=== PATIENT | male | born 2005 | race Two or more races ===

== ENCOUNTER 2025-04-06 07:25 | Emergency (ER) | payer MEDICAID, SELFPAY ==
[2025-04-06 07:40] VITALS: BP 115/79; PULSE 72; RESP 16; TEMP 36.9; O2SAT 94; BMI 22.3
--- NOTE | 2025-04-06 07:50 | XR_ITS ---
EXAMINATION: AP chest single view TECHNIQUE: AP portable upright chest single view Date and time: April 06, 2025, 0759 hours INDICATIONS: Coughing shortness of breath 2 days. FINDINGS: Moderate hyperexpansion Normal heart size Lungs are clear IMPRESSION: Moderate hyperexpansion
[2025-04-06 08:03] VITALS: PULSE 70; PULSE 78; RESP 18; O2SAT 100
[2025-04-06] MEDS: ALBUTEROL RT 2.5 MG/0.5 ML NEBU 5 MG INH (08:03)
[2025-04-06] MEDS: IPRATROPIUM RT 0.5 MG/ 2.5 ML NEBU 1 MG INH (08:03)
[2025-04-06] MEDS: DEXAMETHASONE SOD PHOS INJ 10 MG/ML VIAL PO (08:17)
--- NOTE | 2025-04-06 08:48 | EDNOTE_ITS ---
<Statement entered by Tiff Hua MD - 04/16/25 06:39> As co-signing physician, I was present and available for consult prn. I concur with the plan and care as documented by the midlevel provider. ED Asthma RME/HPI General Chief Complaint: Asthma Stated Complaint: ASTHMA FLAIR-UP Time Seen by Provider: 04/06/25 07:34 Arrival date/time: 04/06/25 07:25 20-year-old male presents to the emergency dept today for complaint of asthma flareup patient reports wheezing ongoing for last 2 days as well as cough and congestion Limitations: no limitations Related Data Previous Rx's ?Medication ?Instructions ?Recorded Ventolin HFA 90 mcg/actuation 2 puff inhalation Q6H PA N 04/06/25 aerosol inhaler (albuterol sulfate) shortness of breat h or wheezing #18 grams prednisone 20 mg tablet 20 mg PO BID 3 days #6 tabs 04/06/25 Allergies Allergy/AdvReac Type Severity Reaction Status Date / Time No Known Allergies Allergy Verified 04/06/25 07:28 Review of Systems Review of Systems Systems Reviewed: All systems reviewed, normal except as documented Constitutional Constitutional: Reports system reviewed and no additional complaints, except as documented, Denies fever(s) and Denies headache(s) Eyes Eyes: Reports system reviewed and no additional complaints, except as documented and Denies blurry vision ENT Ears, Nose, Mouth, and Throat: Reports system reviewed and no additional complaints, except as documented, Denies headache(s), Denies nasal congestion and Denies nasal discharge Cardiovascular Cardiovascular: Reports system reviewed and no additional complaints, except as documented, Denies chest pain and Denies dyspnea Respiratory Respiratory: Reports system reviewed and no additional complaints, except as documented, Reports chest congestion, Reports cough, Denies dyspnea and Reports wheezing Gastrointestinal Gastrointestinal: Reports system reviewed and no additional complaints, except as documented and Denies abdominal pain Integumentary/Breasts Skin/Breast: Reports system reviewed and no additional complaints, except as documented and Denies rash Neurologic Neurologic: Reports system reviewed and no additional complaints, except as documented, Reports as per HPI and Denies headache(s) Allergic/Immunologic Allergic/Immunologic: Reports wheezing Past Medical History Past Medical History CARDIAC: Positive Cardiac Disorders; Negative Congestive Heart Failure RESPIRATORY: Positive Asthma; Negative Chronic Obstructive Pulmonary Disease (COPD) GENITOURINARY: Negative Renal Disease ENDOCRINE: Negative Diabetes Mellitus Type 1 or Diabetes Mellitus Type 2 Social History SMOKING STATUS: Current some day smoker ED Exam General Limitations: Present no limitations General appearance: Present alert and in no apparent distress Head Head exam: Present atraumatic Eye Eye exam: Present normal appearance, PERRL and EOMI ENT ENT exam: Present normal exam, normal oropharynx and mucous membranes moist Neck Neck exam: Present normal inspection, full ROM and trachea midline Chest Chest inspection: Present normal inspection and symmetric chest wall rise Respiratory Respiratory exam: Present wheezes; Absent respiratory distress, stridor, ac cessory muscle use or prolonged expiratory phase Cardiovascular Cardiovascular exam: Present regular rate, normal rhythm and normal heart sounds Abdominal Exam Abdominal exam: Present soft and normal bowel sounds Extremities Exam Extremities exam: Present normal inspection and full ROM Back Exam Back exam: Present normal inspection and full ROM Neurological Exam Neurological exam: Present alert, oriented X3 and CN II-XII intact Psychiatric Psychiatric exam: Present normal affect and normal mood Skin Skin exam: Present warm, dry, intact and normal color Course Quality Measures none Orders Category Date Time Status XR chest 1V portable Stat Exams 04/06/25 07:50 Taken ALBUTEROL RT 0.5ml [Proventil Rt 0.5ml] Med 04/06/25 07:49 Discontinued 5 mg INH X1 ONE Dexamethasone Inj [Decadron Inj] Med 04/06/25 07:49 Discontinued 10 mg PO X1 ONE Ipratropium [place] Rt Veronica [Atrovent Rt Veronica] Med 04/06/25 07:49 Discontinued 1 mg INH X1 ONE Sodium Chloride Rt Veronica 0.9% [NS Rt Veronica 0.9%] Med 04/06/25 07:49 Active 3 ml INH PRN PRN Vital Signs Vital signs: Vital Signs Temperature 98.4 F 04/06/25 07:40 Pulse Rate 72 04/06/25 07:40 Respiratory Rate 16 04/06/25 07:40 Blood Pressure 115/79 04/06/25 07:40 Pulse Oximetry (%) 94 L 04/06/25 07:40 Oxygen Delivery Method Room Air 04/06/25 07:40 O2 saturation 94% room air Asthma MDM Narrative MDM Narrative:: 20-year-old male presents to the emergency dept today for complaint of asthma flareup patient reports wheezing ongoing for last 2 days as well as cough and congestion On exam patient well-appearing does not appear look toxic no acute stress Patient does have bilateral wheezing Patient given breathing treatment steroids Chest x-ray obtained no acute pneumonic infiltrates noted Time reevaluation patient is no wheezing feels better Patient discharged home in no distress to follow-up with primary care doctor in the next 24 to 48 hours and for any worsening symptoms to return to the ER immediately Patient data External records reviewed:: [facility] previous records Clinical information provided by:: patient Social determinants that could affect healthcare access:: none Patient has the following chronic illnesses:: Asthma How is presenting disease/condition affected by chronic disease/condition?: caused by Evaluation data The following diagnostics were reviewed and interpreted by me:: radiology exam(s) Lab and/or radiology exams considered but not ordered:: Radiology obtain Interpretation Summary: Reviewed by me Medications / Prescriptions Medications or Prescriptions considered but not ordered:: Given Medication administrations:: Medication Administration History Sodium Chloride (Sodium Chloride Rt Veronica 0.9% 3 Ml Nebu) 3 ml INH PRN PRN PRN Reason: SOLN Stop: 05/06/25 07:48 Discontinued Medications Albuterol (Albuterol Rt 2.5 Mg/0.5 Ml Nebu) 5 mg INH X1 ONE Stop: 04/06/25 07:50 Last Admin: 04/06/25 08:03 Dose: 5 mg Documented By: KRISTEN Dexamethasone Sodium Phosphate (Dexamethasone Sod Phos Inj 10 Mg/Ml Vial) 10 mg PO X1 ONE Stop: 04/06/25 07:50 Last Admin: 04/06/25 08:17 Dose: 10 mg Documented By: DO Comments: GIVEN PO Ipratropium [place] (Ipratropium Rt 0.5 Mg/ 2.5 Ml Nebu) 1 mg INH X1 ONE Stop: 04/06/25 07:50 Last Admin: 04/06/25 08:03 Dose: 1 mg Documented By: KRISTEN Consultations Consultation(s) initiated? (list below): No Diagnosis Differential diagnosis asthma: Acute exacerbation, Status asthmaticus and Acute asthmatic bronchitis Most likely diagnosis given after review of the tests above:: Asthma exacerbation Admission Indicated Admission indicated?: not indicated Admission Request Was there a request for admission?: No Disposition Plan Disposition Plan: Discharge Discharge Attestation Discharge Attestation: The patient and all family members were given an opportunity to ask questions and understood the discharge instructions. Discharge instructions specifically effects, indications for sooner follow up or return to the emergency department, and the expected course of current diagnosis. Patient condition: Stable Discharge Plan Plan Patient Disposition: HOME (Self Care) Discharge Disposition comment: Stable Prescriptions/Referrals Prescriptions/Med Rec: New albuterol sulfate [Ventolin HFA] 90 mcg/actuation HFA aerosol inhaler 2 puff inhalation Q6H PRN (Reason: shortness of breath or wheezing) Qty: 18 0RF prednisone 20 mg tablet 20 mg PO BID 3 Days Qty: 6 0RF Referrals: No Primary/Family,Physician [Primary Care Provider] - In 1 week Problem List Clinical Impression: Asthma with acute exacerbation Patient/Caregiver Discharge Instructions Education Materials: Asthma Additional Instructions: Please follow up with your primary care doctor in the next 24-48hrs for any worsening symptoms return here immediately Print Language: Yi Stand Alone Forms: Ethel Award Info., Work/School Release, Patient Portal Info Letter PA/PATIENT APPOINTMENT COORDINATOR Supervising Physician PA/PATIENT APPOINTMENT COORDINATOR Supervising Physician: Dr. hua
[2025-04-06 10:10] VITALS: BP 121/97; PULSE 80; RESP 19; TEMP 37; O2SAT 99
== END 2025-04-06 10:11 | disposition home or self-care (01) ==
PROVIDERS: Emergency Provider Emergency Medicine
DX: J45.901 Unspecified asthma with (acute) exacerbation (principal); F17.290 Nicotine dependence, other tobacco product, uncomplicated
CPT/HCPCS: 71045; 94640; 99283; J1100